=== PATIENT | male | born 1995 | race Hispanic/Latino ===

== ENCOUNTER 2021-08-30 18:19 | Emergency (ER) | payer SELFPAY ==
--- OUTSIDE RECORDS SUMMARY | 2021-08-30 18:22 | XMS REPORT | Continuity of Care Document ---
:1995 Author Organization [facility] t Address [address] [place] [address] Care Team Providers Name Role Phone Jaxon MELISSA Attending Clinician JAXON Attending Clinician Unavailable Payers Payer Name Policy Type Policy Number Effective Date Expiration Date S ource Problems Condition Condition Condition Status Onset Resolution Last Treating Co mments Source Name Details Category Date Date Treatment Clinician Date Closed Closed Disease Active 2011-09 Univers fracture fracture 2 ity of of shaft of shaft 00:00: [place] of radius of radius 00 Medi alana with ulna with ulna Bran ch Allergies, Adverse Reactions, Alerts Allergy Allergy Status Severity Reaction(s) Onset Inactive Treating Comm ents Source Name Type Date Date Clinician No Known DA Active U [facility] Allergie 05-14 Clear s 00:00: Gonzalez 00 [facility] NO KNOWN Drug Active Univers ALLERGIE Class ity of [facility] [place] [facility] Social History Social Habit Start Date Stop Date Quantity Comments Source Sex Assigned At [facility] Medical Branch Exposure to Not sure [facility] SARS-CoV-2 (event) Medica l Branch Tobacco use and 2016-02-27 2016-02-27 Never used [facility] exposure 00:00:00 00:00:00 Medical Branch Alcohol intake 2016-02-27 2016-02-27 [facility] 00:00:00 00:00:00 [facility] Smoking Status Start Date Stop Date Source Never smoker [facility] Medications Ordered Filled Start Stop Current Ordering Indication Dosage Frequency Signature Comments Components Source Medication Medication Date Date Medication? Clinician (SIG) Name Name ketorolac 2019-09 2020- No 60mg 60 mg, Unive rs (TORADOL) 0-18 10-18 Intramuscu ity of injection 09:30: 08:41 [place], ONCE[place] 60 mg 00 :00 1 dose, Medical [place] 06/24/20 at 0430, CAYLA
Fa [facility] approving Restricted medication : ROYER COATES dicyclomine 2019-09- No 20mg 20 mg, Uni vers (BENTYL) 0-18 10-18 Intramuscu ity of injection 09:30: 08:40 [place] 20 mg 00 :00 NOW, 1 Medical dose, [place] 06/24/20 at 0430, Routine dicyclomine 2019-09 Yes [id number] 10mg Take 1 Univers (BENTYL) 10 0-18 capsule by it [place] of mg capsule 00:00[place] (four[place] Medical times Branch daily as needed for Abdominal pain (Abdominal cramps). famotidine 2019-09 Yes [id number] 20mg Take 1 U nivers (PEPCID) 20 0-18 tablet by ity of mg tablet 00:00: mouth 2 [place] 00 (two) Medical times Branch daily. ketorolac 2019-09 Yes [id number] 10mg Take 1 Un david 10 mg 0-18 tablet by ity of tablet 00:00: mouth [place] 00 every 6 Medical (six) Branch hours as needed for Pain (scale 4-6) or Pain (scale 7-10). PSEUDOEPHED Yes Take by Un david /DIPHENHYDR 1-09 mouth. ity of AMINE 15:20: [place] (ALLERGY & 13 Medical CONGEST Branch RELIEF ORAL) HYDROcodone Yes 1{tbl} Take 1-2 Univers -acetaminop 1-09 Tabs by ity o f hen (NORCO) 00:00: mouth [place] 5-325 mg 00 every 6 Medical tablet (six) Branch hours as needed for Pain. Vital Signs Vital Name Observation Time Observation Value Comments Source Systolic blood 2020-06-24 09:42:41 123 mm[Hg] Univer sity of pressure [facility] Diastolic blood 2020-06-24 09:42:41 63 mm[Hg] Unive rsity of pressure [facility] Heart rate 2020-06-24 09:42:41 72 /min [facility] Respiratory rate 2020-06-24 09:42:41 18 /min [facility] Oxygen saturation in 2020-06-24 09:42:41 99 /min [facility] Arterial blood by [facility] Pulse oximetry [place] Body temperature 2020-06-24 08:07:00 36.83 Gracie [facility] Body height 2020-06-24 08:07:00 175.3 cm [facility] Body weight 2020-06-24 08:07:00 85.73 kg [facility] BMI 2020-06-24 08:07:00 27.91 kg/m2 [facility] Procedures Procedure Date / Time Performed Performing Clinician [facility] e US GALL BLADDER 2020-06-24 09:24:03 Royer Coates [facility] LIPASE 2020-06-24 08:41:00 Royer Coates [facility] COMP. METABOLIC PANEL 2020-06-24 08:41:00 Royer Coates [facility] ([id number]) [facility] CBC WITH DIFF 2020-06-24 08:41:00 Royer Coates [facility] Encounters Start End Encounter Admission Attending Care Care Encounter Source Date/Time Date/Time Type Type Clinicians Facility Department ID 2020-06-24 2020-06-24 Emergency Jaxon [facility] [id number] Univers 03:06:00 04:44:00 Royer [employer] [id number] it y of [place] [id number] [facility] [id number] [address] ([facility]) 2020-06-24 2020-06-24 Emergency X JAXON OHDARYL ERT [id number] Univers 03:06:00 03:06:00 ROYER agee [facility] 2018-09-07 2018-09-07 Emergency [facility] [id number] [place] 04:56:03 04:56:03 Health 2018-09-07 2018-09-07 Emergency [facility] [id number] [place] 03:05:09 03:05:09 Health Results Test Description Test Time Test Comments Results Result Comments Source COMP. METABOLIC PANEL (34077) 2020-06-24 09:00:00 Test Item Value Reference Range Interpretation Comme nts NA (test code = 2738252163) 139 mmol/L 135-145 K (test code = 9272037363) 4.4 mmol/L 3.5-5 CL (test code = 1188145787) 100 mmol/L 98-108 CO2 TOTAL (test code = 29 mmol/L 23-31 9020706977) AGAP (test code = 6625610544) 2-16 BUN (test code = 7754192169) 12 mg/dL 7-23 GLUCOSE (test code = 9610189294) 90 mg/dL 70-110 CREATININE (test code = 0.87 mg/dL 0.6-1.25 3668363990) TOTAL BILI (test code = 0.4 mg/dL 0.1-1.9 8156905877) CALCIUM (test code = 3204302003) 10.0 mg/dL 8.6-10.6 T PROTEIN (test code = 7.6 g/dL 6.3-8.2 3489689569) ALBUMIN (test code = 0496284612) 4.7 g/dL 3.5-5 ALK PHOS (test code = 2854766212) 62 U/L 34-122 ALTv (test code = 1742-6) 18 U/L 5-50 AST(SGOT) (test code = 29 U/L 13-40 2468653175) eGFR Calculation (Non- mL/min/1.73m2 Albanian) (test code = 2132846888) eGFR Calculation ( mL/min/1.73m2 Albanian) (test code = 1545360475) NOAH (test code = NOAH) Association of Glomerular Filtration Rate (GFR) and Staging of Kidney Disease* + +--------- + ----+| GFR (mL/min/1.73 m2) ?| With Kidney Damage ?| ?Without Kidney Damage+ +--- + +| ?>90 ?| ?Stage one ?| ? Normal ?+ +-------- + -----+| ?60-89 ?| ?Stage two ?| ? Decreased GFR ? + +--------- + ----+| ?30-59 ?| ?Stage three ?| ? Stage three ? + +--------- + ----+| ?15-29 ?| ?Stage four ? | ? Stage four ?+ +-------- + -----+| ?<15 (or dialysis) ? ?| ?Stage five ? | ? Stage five ?+ +-------- + -----+ *Each stage assumes the associated GFR level has been in effect for at least three months. ?Stages 1 to 5, with or without kidney disease, indicate chronic kidney disease. Notes: Determination of stages one and two (with eGFR >59mL/min/1.73 m2) requires estimation of kidney damage for at least three months as defined by structural or functional abnormalities of the kidney, manifested by either:Pathological abnormalities or Markers of kidney damage (including abnormalities in the composition of the blood or urine or abnormalities in imaging tests). [facility]00 Test Item Value Reference Range Interpretation Comments LIPASE (test code = 2924181909) 69 U/L 0-220 Lab Interpretation (test code = Normal 73478-0) [facility] WITH [id number] 08:48:00 Test Item Value Reference Range Interpretation Comments WBC (test code = See_Comment [Automated 2966-2) message] The sy stem which generated this result transmitted reference range : 4.20 - 10.70 10*3/?L. The reference range was not used to interpret this result as normal/abnormal . RBC (test code = See_Comment [Automated 442-8) message] The sy stem which generated this result transmitted reference range : 4.26 - 5.52 10*6/?L. The reference range was not used to interpret this result as normal/abnormal . HGB (test code = 14.4 g/dL 12.2-16.4 718-7) HCT (test code = 41.8 % 38.4-49.3 4544-3) MCV (test code = 91.1 fL 81.7-95.6 787-2) MCH (test code = 31.4 pg 26.1-32.7 785-6) MCHC (test code = 34.4 g/dL 31.2-35 786-4) RDW-SD (test code = 39.1 fL 38.5-51.6 04340-3) RDW-CV (test code = 11.7 % 12.1-15.4 L 788-0) PLT (test code = See_Comment [Automated 777-3) message] The sy stem which generated this result transmitted reference range : 150 - 328 10*3/ ?L. The reference r citlali was not used to interpret this result as normal/abnormal . MPV (test code = 9.9 fL 9.8-13 86721-0) NRBC/100 WBC (test See_Comment [Automat ed code = 0093402438) message] The system which generated this result transmitted reference range : 0.0 - 10.0 /100 WBCs. The refer ence range was not u sed to interpret th is result as normal/abnormal . NRBC x10^3 (test code <0.01 See_Comment [Auto mated = 8511306593) message] The s ystem which generated this result transmitted reference range : 10*3/?L. The reference range was not used to interpret this result as normal/abnormal . GRAN MAT (NEUT) % 44.7 % (test code = 770-8) IMM GRAN % (test code 0.50 % = 7906328001) LYMPH % (test code = 38.6 % 736-9) MONO % (test code = 7.5 % 5905-5) EOS % (test code = 8.0 % 713-8) BASO % (test code = 0.7 % 706-2) GRAN MAT x10^3(ANC) 3.90 10*3/uL 1.99-6.95 (test code = 3335794598) IMM GRAN x10^3 (test 0.04 10*3/uL 0-0.06 code = 4142509639) LYMPH x10^3 (test code 3.37 10*3/uL 1.09-3.23 H = 731-0) MONO x10^3 (test code 0.65 10*3/uL 0.36-1.02 = 742-7) EOS x10^3 (test code = 0.70 10*3/uL 0.06-0.53 H 711-2) BASO x10^3 (test code 0.06 10*3/uL 0.01-0.09 = 704-7) Lab Interpretation Abnormal (test code = 22846-3) [facility]"
--- NOTE | 2021-08-30 19:35 | ER ---
Nurse's Notes [facility] Name: Bassem Almonte Age: 26 yrs Sex: Male : 1995 Arrival Date: 08/30/2021 Time: 18:21 Bed Waiting Private MD: Diagnosis: ED Course: 08/30 18:21 Patient arrived in ED. mr Administered Medications: No medications were administered Outcome: 19:35 Patient left the ED. tw5 Signatures: Rayna Fletcher Bekah Sosa tw5
== END 2021-08-30 19:35 | disposition left against medical advice (07) ==
LOC: ER 18:19
DX: Z02.9 Encounter for administrative examinations, unspecified (principal)

== ENCOUNTER 2022-06-09 02:50 | Emergency (ER) | payer SELFPAY ==
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
[2022-06-09] MEDS ORDERED: ONDANSETRON 4 MG/2 ML VIAL ONE (03:10)
[2022-06-09] MEDS ORDERED: NA CHLORIDE 0.9% 1,000 ML ONE (03:27)
--- NOTE | 2022-06-09 04:15 | ER ---
Nurse's Notes [facility] Name: Bassem Almonte Age: 27 yrs Sex: Male : 1995 Arrival Date: 06/09/2022 Time: 02:53 Bed 16 Private MD: Diagnosis: Presentation: 06/09 03:11 Chief complaint: Patient states: "I started having pain in my abdomen in the morning. as6 It's making it hard to eat. I have also been a little nauseous.". Coronavirus screen: Vaccine status: Patient reports being unvaccinated. nausea, abdominal pain. Ebola Screen: No symptoms or risks identified at this time. Initial Sepsis Screen: Does the patient meet any 2 criteria? HR > 90 bpm. No. Patient's initial sepsis screen is negative. Does the patient have a suspected source of infection? Yes: Acute abdominal pain. Risk Assessment: Do you want to hurt yourself or someone else? Patient reports no desire to harm self or others. Onset of symptoms was June 08, 2022. 03:11 Method Of Arrival: Ambulatory as6 03:11 Acuity: SHAQUILLE 3 as6 Triage Assessment: 03:14 General: Appears in no apparent distress. uncomfortable, Behavior is calm, cooperative, vc1 appropriate for age. Pain: Complains of pain in right upper quadrant Pain does not radiate. Pain currently is 6 out of 10 on a pain scale. Aggravated by eating. EENT: No deficits noted. Neuro: Level of Consciousness is awake, alert, obeys commands, Oriented to person, place, time, situation, Appropriate for age. Cardiovascular: Capillary refill < 3 seconds Patient's skin is warm and dry. Respiratory: Airway is patent Respiratory effort is even, unlabored, Respiratory pattern is regular, symmetrical. GI: Abd is soft Abdomen is tender to palpation Guarding noted Reports upper abdominal pain, nausea. : No deficits noted. Derm: No deficits noted. No signs and/or symptoms reported regarding the dermatologic system. Musculoskeletal: No deficits noted. No signs and/or symptoms reported regarding the musculoskeletal system. Historical: - Allergies: 03:14 No Known Allergies; vc1 - Home Meds: 03:14 None [Active]; vc1 - PMHx: 03:14 None; vc1 - PSHx: 03:14 None; vc1 - Immunization history:: Adult Immunizations up to date, Client reports having NOT received the Covid vaccine. - Social history:: Smoking status: Patient reports the use of cigarette tobacco products, smokes one pack cigarettes per day. Screenin:14 Abuse screen: Denies threats or abuse. Nutritional screening: No deficits noted. vc1 Tuberculosis screening: No symptoms or risk factors identified. Fall Risk None identified. Assessment: 03:18 Pain: Complains of pain in abdomen and right upper quadrant Pain currently is 6 out of ke1 10 on a pain scale. at worst was 6 out of 10 on a pain scale. level that patient reports is acceptable is 4 out of 10 on a pain scale. Quality of pain is described as shooting. Neuro: Level of Consciousness is awake, alert, Oriented to person, place, time, situation. GI: Bowel sounds present X 4 quads. Abd is soft Abdomen is tender to palpation in right upper quadrant and right lower quadrant. 04:04 Reassessment: Patient wants lo leave because he has to be at work at 0430, refusing CT ke1 scan because feeling better, provider notified , and patient still refusing despite provider explaining the risks of appendicitis to the patient, patient wants to leave. Vital Signs: 03:11 BP 142 / 86; Pulse 96; Resp 20; Temp 98.2(O); Pulse Ox 100% on R/A; Weight 92.99 kg as6 (R); Height 5 ft. 9 in. (175.26 cm) (R); Pain 6/10; 03:16 Pain 6/10; vc1 04:07 BP 141 / 91; Pulse 107; Resp 19; Temp 98.7(O); Pulse Ox 98% ; ke1 03:11 Body Mass Index 30.27 (92.99 kg, 175.26 cm) as6 ED Course: 02:53 Patient arrived in ED. bp1 02:55 Charlie Cameron MD is Attending Physician. kdr 03:01 Luis Fernando Chapin RN is Primary Nurse. ke1 03:05 Inserted saline lock: 20 gauge in left antecubital area, using aseptic technique. Blood vc1 collected. 03:13 Triage completed. as6 03:16 Arm band placed on right wrist. vc1 03:16 Patient has correct armband on for positive identification. Bed in low position. Call vc1 light in reach. Pulse ox on. NIBP on. 03:17 CBC with Diff Sent. vc1 03:17 CMP Sent. vc1 03:17 Lipase Sent. vc1 Administered Medications: 03:19 Drug: Zofran (Ondansetron) 4 mg Route: IVP; Site: left antecubital; ke1 03:40 Follow up: Response: Marked relief of symptoms; Nausea is decreased ke1 03:29 Drug: NS 0.9% 1000 ml Route: IV; Rate: 1 bolus; Site: left antecubital; ke1 Medication: 03:16 VIS not applicable for this client. vc1 Outcome: 04:14 Patient left the ED. ke1 Signatures: Charlie Cameron MD MD kdr [place], Brittany bp1 Slawson, Ashby, RN RN as6 Peg Corona RN RN vc1 Luis Fernando Chapin RN RN ke1
--- NOTE | 2022-06-09 04:15 | EDPHYS ---
Physician Documentation [facility] Name: Bassem Almonte Age: 27 yrs Sex: Male : 1995 Arrival Date: 06/09/2022 Time: 02:53 Bed 16 Private MD: ED Physician Charlie Cameron HPI: 06/09 03:25 This 27 yrs old Male presents to ER via Ambulatory with complaints of kdr Abdominal Pain, Nausea. 03:25 The patient presents to the emergency department with nausea, that is mild, that is kdr moderate. Onset: The symptoms/episode began/occurred acutely. 03:26 Patient complains of right lower quadrant right upper quadrant pain since yesterday kdr morning. Pain is minor but persistent. Patient denies nausea or vomiting or fever. Patient also denies change in bowel habits or pain with urination.. Onset: The symptoms/episode began/occurred this morning. Severity of symptoms: At their worst the symptoms were mild in the emergency department the symptoms are unchanged. The patient has not experienced similar symptoms in the past. Historical: - Allergies: 03:14 No Known Allergies; vc1 - Home Meds: 03:14 None [Active]; vc1 - PMHx: 03:14 None; vc1 - PSHx: 03:14 None; vc1 - Immunization history:: Adult Immunizations up to date, Client reports having NOT received the Covid vaccine. - Social history:: Smoking status: Patient reports the use of cigarette tobacco products, smokes one pack cigarettes per day. ROS: 03:26 Constitutional: Negative for fever, chills, and weight loss, Eyes: Negative for injury, kdr pain, redness, and discharge, ENT: Negative for injury, pain, and discharge, Neck: Negative for injury, pain, and swelling, Cardiovascular: Negative for chest pain, palpitations, and edema, Respiratory: Negative for shortness of breath, cough, wheezing, and pleuritic chest pain, Back: Negative for injury and pain, : Negative for injury, bleeding, discharge, and swelling, MS/Extremity: Negative for injury and deformity, Skin: Negative for injury, rash, and discoloration, Neuro: Negative for headache, weakness, numbness, tingling, and seizure activity. Psych: Negative for depression, anxiety, suicide ideation, homicidal ideation, and hallucinations, Allergy/Immunology: Negative for hives, rash, and allergies, Endocrine: Negative for neck swelling, polydipsia, polyuria, polyphagia, and marked weight changes, Hematologic/Lymphatic: Negative for swollen nodes, abnormal bleeding, and unusual bruising. 03:26 Abdomen/GI: Positive for abdominal pain, Negative for nausea and vomiting, diarrhea, constipation, abdominal cramps, abdominal distension, anorexia, dysphagia, hematemesis, black/tarry stool, rectal pain, rectal bleeding, bowel incontinence. Exam: 03:26 Constitutional: This is a well developed, well nourished patient who is awake, alert, kdr and in no acute distress. Head/Face: Normocephalic, atraumatic. Eyes: Pupils equal round and reactive to light, extra-ocular motions intact. Lids and lashes normal. Conjunctiva and sclera are non-icteric and not injected. Cornea within normal limits. Periorbital areas with no swelling, redness, or edema. Neck: Trachea midline, no thyromegaly or masses palpated, and no cervical lymphadenopathy. Supple, full range of motion without nuchal rigidity, or vertebral point tenderness. No Meningismus. Chest/axilla: Normal chest wall appearance and motion. Nontender with no deformity. No lesions are appreciated. Cardiovascular: Regular rate and rhythm with a normal S1 and S2. No gallops, murmurs, or rubs. Normal PMI, no JVD. No pulse deficits. Respiratory: Lungs have equal breath sounds bilaterally, clear to auscultation and percussion. No rales, rhonchi or wheezes noted. No increased work of breathing, no retractions or nasal flaring. Back: No spinal tenderness. No costovertebral tenderness. Full range of motion. Skin: Warm, dry with normal turgor. Normal color with no rashes, no lesions, and no evidence of cellulitis. MS/ Extremity: Pulses equal, no cyanosis. Neurovascular intact. Full, normal range of motion. Neuro: Awake and alert, GCS 15, oriented to person, place, time, and situation. Cranial nerves II-XII grossly intact. Motor strength 5/5 in all extremities. Sensory grossly intact. Cerebellar exam normal. Normal gait. Psych: Awake, alert, with orientation to person, place and time. Behavior, mood, and affect are within normal limits. 03:26 Abdomen/GI: Inspection: abdomen appears normal, Bowel sounds: active, all quadrants, Palpation: soft, mild abdominal tenderness, in the right upper quadrant and right lower quadrant. Vital Signs: 03:11 BP 142 / 86; Pulse 96; Resp 20; Temp 98.2(O); Pulse Ox 100% on R/A; Weight 92.99 kg as6 (R); Height 5 ft. 9 in. (175.26 cm) (R); Pain 6/10; 03:16 Pain 6/10; vc1 04:07 BP 141 / 91; Pulse 107; Resp 19; Temp 98.7(O); Pulse Ox 98% ; ke1 03:11 Body Mass Index 30.27 (92.99 kg, 175.26 cm) as6 MDM: 03:26 Data reviewed: vital signs, nurses notes, lab test result(s), radiologic studies. kdr Counseling: I had a detailed discussion with the patient and/or guardian regarding: the historical points, exam findings, and any diagnostic results supporting the discharge/admit diagnosis, lab results, radiology results, the need for outpatient follow up. 06/09 02:56 Order name: CBC with Diff kdr 06/09 02:56 Order name: CMP kdr 06/09 02:56 Order name: Lipase kdr 06/09 03:24 Order name: CT Abd/Pelvis - IV Contrast Only kdr 06/09 02:56 Order name: IV Saline Lock; Complete Time: 03:17 kdr 06/09 02:56 Order name: Labs collected and sent; Complete Time: 03:17 kdr Administered Medications: 03:19 Drug: Zofran (Ondansetron) 4 mg Route: IVP; Site: left antecubital; ke1 03:40 Follow up: Response: Marked relief of symptoms; Nausea is decreased ke1 03:29 Drug: NS 0.9% 1000 ml Route: IV; Rate: 1 bolus; Site: left antecubital; ke1 Disposition Summary: 06/09/22 04:14 Left Against Medical Advice Location: Home ke1 Condition: Stable ke1 Signatures: Dispatcher [employer] EDMS Charlie Cameron MD MD kdr Peg Corona RN RN vc1 Luis Fernando Chapin RN RN ke1
[2022-06-09 04:41] VITALS: BP 141/91; TEMP 98.7; O2SAT 98
[2022-06-09 05:28] LABS: Absolute Lymphocytes (CBC) 1.3 K/uL (0.7-4.9); Hematocrit 44.6 % (39.6-49.0); Lymphocytes % 13.6 % (15.3-44.8); MPV 8.1 fL (7.6-11.3)
[2022-06-09 05:57] LABS: Potassium 3.1 mmol/L (3.5-5.1)
[2022-06-09 05:58] LABS: Albumin 4.4 g/dL (3.4-5.0); Bilirubin Total 0.4 mg/dL (0.2-1.0); Protein, Total 8.7 g/dL (6.4-8.2)
== END 2022-06-09 04:14 | disposition left against medical advice (07) ==
LOC: ER 02:50
DX: R10.9 Unspecified abdominal pain (principal); F17.210 Nicotine dependence, cigarettes, uncomplicated; Z53.29 Procedure and treatment not carried out because of patient's decision for other reasons
CPT/HCPCS: 36415; 80053; 83690; 85025; 96374; 99284; J2405; J7030

== ENCOUNTER 2022-08-12 08:51 | Emergency (ER) | payer SELFPAY ==
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
[2022-08-12 10:29] LABS: SARS-COV-2 RT PCR NEGATIVE (NEGATIVE)
--- NOTE | 2022-08-12 10:31 | ER ---
Nurse's Notes [facility] Name: Bassem Almonte Age: 27 yrs Sex: Male : 1995 Arrival Date: 08/12/2022 Time: 08:53 Bed 12 [facility] MD: Diagnosis: Influenza due to identified novel influenza A virus Presentation: 08/12 09:05 Chief complaint: Patient states: flu like symptoms, cough and congestion x 3 days. At db home temp 102. Coronavirus screen: Vaccine status: Patient reports being unvaccinated. Client denies travel out of the [place] in the last 14 days. At this time, the client does not indicate any symptoms associated with coronavirus-19. Coronavirus screen:. Ebola Screen: Patient negative for fever greater than or equal to 101.5 degrees Fahrenheit, and additional compatible Ebola Virus Disease symptoms Patient denies exposure to infectious person. Patient denies travel to an Ebola-affected area in the 21 days before illness onset. No symptoms or risks identified at this time. Initial Sepsis Screen: Does the patient meet any 2 criteria? No. Patient's initial sepsis screen is negative. Does the patient have a suspected source of infection? No. Patient's initial sepsis screen is negative. Risk Assessment: Do you want to hurt yourself or someone else? Patient reports no desire to harm self or others. Onset of symptoms was August 09, 2022. 09:05 Method Of Arrival: Ambulatory db 09:05 Acuity: SHAQUILLE 4 db Triage Assessment: 09:08 General: Appears in no apparent distress. comfortable, Behavior is calm, cooperative, db quiet. Pain: Complains of pain in throat. Historical: - Allergies: 09:08 No Known Allergies; db - Immunization history:: Adult Immunizations unknown, Client reports having NOT received the Covid vaccine. - Social history:: Smoking status: Patient denies any tobacco usage or history of. Screenin:15 Abuse screen: Denies threats or abuse. Denies injuries from another. Nutritional db screening: No deficits noted. Tuberculosis screening: No symptoms or risk factors identified. Fall Risk None identified. No fall in past 12 months (0 pts). No secondary diagnosis (0 pts). No IV (0 pts). Ambulatory Aid- None/Bed Rest/Nurse Assist (0 pts). Gait- Normal/Bed Rest/Wheelchair (0 pts) Mental Status- Oriented to own ability (0 pts). Total Roche Fall Scale indicates No Risk (0-24 pts). Assessment: 09:15 Reassessment: Patient appears in no apparent distress at this time. Patient is alert, db oriented x 3, equal unlabored respirations, skin warm/dry/pink. Cough congestion and fever. General: Appears in no apparent distress. comfortable, Behavior is calm, cooperative, appropriate for age, quiet. Pain: Complains of pain in throat. Neuro: No deficits noted. Level of Consciousness is awake, alert, obeys commands, Oriented to person, place, time, situation, Appropriate for age Speech is normal. Cardiovascular: No deficits noted. Respiratory: Reports cough that is Airway is patent Respiratory effort is even, unlabored, Respiratory pattern is regular, symmetrical, Breath sounds are clear bilaterally. GI: No deficits noted. No signs and/or symptoms were reported involving the gastrointestinal system. : No deficits noted. No signs and/or symptoms were reported regarding the genitourinary system. EENT: Oral mucosa is moist. Reports sore throat. 10:41 Reassessment: Patient appears in no apparent distress at this time. No changes from db previously documented assessment. Patient and/or family updated on plan of care and expected duration. Pain level reassessed. Patient is alert, oriented x 3, equal unlabored respirations, skin warm/dry/pink. Vital Signs: 09:05 BP 111 / 64; Pulse 71; Resp 18 S; Temp 98.5(O); Pulse Ox 100% on R/A; Weight 83.91 kg; db Height 5 ft. 10 in. (177.80 cm); Pain 5/10; 10:41 BP 111 / 64; Pulse 72; Resp 16; Temp 97.7(O); Pulse Ox 100% ; db 09:05 Body Mass Index 26.54 (83.91 kg, 177.80 cm) db ED Course: 08:53 Patient arrived in ED. as 09:00 Charlie Cameron MD is Attending Physician. kdr 09:01 [facility] 09:08 Triage completed. db 09:08 Arm band placed on left wrist. db 09:09 Jasmine Schafer, CARLOS MANUEL is Primary Nurse. db 09:15 Patient has correct armband on for positive identification. Bed in low position. Side db rails up X 1. 10:05 [facility] sn[facility] 10:42 No provider procedures requiring assistance completed. Patient did not have IV access db during this emergency room visit. Administered Medications: No medications were administered Medication: 09:15 VIS not applicable for this client. db Outcome: 10:30 Discharge ordered by . snw 10:42 Discharged to home ambulatory. db 10:42 Condition: stable 10:42 Discharge instructions given to patient, Instructed on discharge instructions, follow up and referral plans. Demonstrated understanding of instructions, Prescriptions given X 3. 10:43 Patient left the ED. db Signatures: Charlie Cameron MD MD kdr Waters, Shelly, FNP-C FNP-Csnw Jaida Green Danielle, RN RN db
--- NOTE | 2022-08-12 10:31 | EDPHYS ---
Physician Documentation [facility] Name: Bassem Almonte Age: 27 yrs Sex: Male : 1995 Arrival Date: 08/12/2022 Time: 08:53 Bed 12 Private MD: ED Physician Charlie Cameron HPI: 08/12 09:12 This 27 yrs old Male presents to ER via Ambulatory with complaints of Flu snw Symptoms. 09:12 The patient or guardian reports cough, flu symptoms, low-grade fever, myalgias, no snw appetite. Onset: The symptoms/episode began/occurred suddenly, 3 day(s) ago, and became persistent. Associated signs and symptoms: Pertinent positives: fever, nausea, rhinorrhea. Severity of symptoms: At their worst the symptoms were moderate. The patient has not experienced similar symptoms in the past. The patient has not recently seen a physician. Historical: - Allergies: 09:08 No Known Allergies; db - Immunization history:: Adult Immunizations unknown, Client reports having NOT received the Covid vaccine. - Social history:: Smoking status: Patient denies any tobacco usage or history of. ROS: 09:12 Eyes: Negative for injury, pain, redness, and discharge. snw 09:12 Neck: Negative for injury, pain, and swelling, Cardiovascular: Negative for chest pain, palpitations, and edema. 09:12 Abdomen/GI: Negative for abdominal pain, nausea, vomiting, diarrhea, and constipation, Back: Negative for injury and pain, : Negative for injury, bleeding, discharge, and swelling, MS/Extremity: Negative for injury and deformity, Skin: Negative for injury, rash, and discoloration, Neuro: Negative for headache, weakness, numbness, tingling, and seizure. 09:12 Constitutional: Positive for body aches, fatigue, fever, malaise. 09:12 ENT: Positive for nasal discharge, sinus congestion, sore throat. 09:12 Respiratory: Positive for cough, with no reported sputum. Exam: 09:14 Constitutional: This is a well developed, well nourished patient who is awake, alert, snw and in no acute distress. Head/Face: Normocephalic, atraumatic. Eyes: Pupils equal round and reactive to light, extra-ocular motions intact. Lids and lashes normal. Conjunctiva and sclera are non-icteric and not injected. Cornea within normal limits. Periorbital areas with no swelling, redness, or edema. ENT: Nares patent. No nasal discharge, no septal abnormalities noted. Tympanic membranes are normal and external auditory canals are clear. Oropharynx with no redness, swelling, or masses, exudates, or evidence of obstruction, uvula midline. Mucous membranes moist. Neck: Trachea midline, no thyromegaly or masses palpated, and no cervical lymphadenopathy. Supple, full range of motion without nuchal rigidity, or vertebral point tenderness. No Meningismus. Chest/axilla: Normal chest wall appearance and motion. Nontender with no deformity. No lesions are appreciated. Cardiovascular: Regular rate and rhythm with a normal S1 and S2. No gallops, murmurs, or rubs. Normal PMI, no JVD. No pulse deficits. Respiratory: Lungs have equal breath sounds bilaterally, clear to auscultation and percussion. No rales, rhonchi or wheezes noted. No increased work of breathing, no retractions or nasal flaring. Abdomen/GI: Soft, non-tender, with normal bowel sounds. No distension or tympany. No guarding or rebound. No evidence of tenderness throughout. Back: No spinal tenderness. No costovertebral tenderness. Full range of motion. Skin: Warm, dry with normal turgor. Normal color with no rashes, no lesions, and no evidence of cellulitis. MS/ Extremity: Pulses equal, no cyanosis. Neurovascular intact. Full, normal range of motion. Neuro: Awake and alert, GCS 15, oriented to person, place, time, and situation. Cranial nerves II-XII grossly intact. Motor strength 5/5 in all extremities. Sensory grossly intact. Cerebellar exam normal. Normal gait. Psych: Awake, alert, with orientation to person, place and time. Behavior, mood, and affect are within normal limits. Vital Signs: 09:05 BP 111 / 64; Pulse 71; Resp 18 S; Temp 98.5(O); Pulse Ox 100% on R/A; Weight 83.91 kg; db Height 5 ft. 10 in. (177.80 cm); Pain 5/10; 10:41 BP 111 / 64; Pulse 72; Resp 16; Temp 97.7(O); Pulse Ox 100% ; db 09:05 Body Mass Index 26.54 (83.91 kg, 177.80 cm) db MDM: 09:03 Patient medically screened. snw 09:14 Data reviewed: vital signs, nurses notes. Data interpreted: Pulse oximetry: on room air snw is 100 %. Interpretation: normal. Counseling: I had a detailed discussion with the patient and/or guardian regarding: the historical points, exam findings, and any diagnostic results supporting the discharge/admit diagnosis. 08/12 09:02 Order name: COVID-19/FLU A+B/RSV; Complete Time: 10:31 snw Administered Medications: No medications were administered Disposition: 10:55 Co-signature as Attending Physician, Charlie Cameron MD I agree with the assessment and kdr plan of care. Disposition Summary: 08/12/22 10:30 Discharge Ordered Location: Home snw Condition: Stable snw Diagnosis - Influenza due to identified novel influenza A virus snw Followup: snw - With: Emergency Department - When: As needed - Reason: Worsening of condition Followup: snw - With: Private Physician - When: 2 - 3 days - Reason: Recheck today's complaints, Continuance of care, Re-evaluation by your physician Discharge Instructions: - Discharge Summary Sheet snw - Fever, Adult snw - Influenza, Adult snw - Rehydration, Adult snw Forms: - Medication Reconciliation Form snw - Thank You Letter snw - Antibiotic Education snw - Prescription Opioid Use snw - Work release form snw Prescriptions: - Zyrtec 10 mg Oral Tablet - take 1 tablet by ORAL route once daily As needed; 20 tablet; Refills: 0, snw Product Selection Permitted - Pepcid 20 mg Oral Tablet - take 1 tablet by ORAL route once daily; 20 tablet; Refills: 0, Product snw Selection Permitted - promethazine 25 mg Oral Tablet - take 1 tablet by ORAL route every 6 hours As needed; 20 tablet; Refills: 0, snw Product Selection Permitted Signatures: Dispatcher [employer] Charlie Green MD MD kdr Waters, Shelly, HEALTHCARE SCIENCE SPECIALIST-C HEALTHCARE SCIENCE SPECIALIST-Csnw Jasmine Schafer, RN RN db
[2022-08-12 12:44] VITALS: BP 111/64; O2SAT 100
[2022-08-12 12:45] VITALS: TEMP 97.7
== END 2022-08-12 10:43 | disposition home or self-care (01) ==
LOC: ER 08:51
DX: J10.1 Influenza due to other identified influenza virus with other respiratory manifestations (principal); Z20.822 Contact with and (suspected) exposure to COVID-19
CPT/HCPCS: 0241U; 99282

== ENCOUNTER 2022-09-15 14:16 | Emergency (ER) | payer SELFPAY ==
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
--- NOTE | 2022-09-15 15:37 | RAD REPORT ---
EXAM DESCRIPTION: US - Extrem Venous W Compress Carmelo - 09/15/2022 3:19 pm CLINICAL HISTORY: Pain Bilateral leg edema and swelling. COMPARISON: No comparisons TECHNIQUE: Real-time sonographic interrogation of the left and right lower extremity deep venous sys tems was performed. FINDINGS: Normal compressibility, flow augmentation, phasic flow and spontaneous flow is identified in both the left and right lower extremity deep venous systems. IMPRESSION: No sonographic evidence of left or right lower extremity deep venous thrombosis.
--- NOTE | 2022-09-15 15:40 | RAD REPORT ---
EXAM DESCRIPTION: RAD - Chest Single View - 09/15/2022 3:21 pm CLINICAL HISTORY: Cough Chest pain. COMPARISON: No comparisons FINDINGS: Portable technique limits examination quality. The lungs are grossly clear. The heart is normal in size. No displaced fractures. IMPRESSION: No acute intrathoracic process suspected.
--- NOTE | 2022-09-15 16:05 | EDPHYS ---
Physician Documentation [facility] Name: Bassem Almonte Age: 27 yrs Sex: Male : 1995 Arrival Date: 09/15/2022 Time: 14:18 Bed 5 Private MD: ED Physician Doug Conn HPI: 09/15 15:57 This 27 yrs old Male presents to ER via Ambulatory with complaints of chen Shortness Of Breath, Leg Swelling. 15:57 The patient has shortness of breath at rest. Onset: The symptoms/episode began/occurred chen 5 day(s) ago. Duration: The symptoms are intermittent, with no pattern. The patient's shortness of breath has no apparent modifying factors. Associated signs and symptoms: Pertinent positives: non-productive cough. Severity of symptoms: At their worst the symptoms were mild in the emergency department the symptoms are unchanged. The patient has experienced similar episodes in the past, a few times. Historical: - Allergies: 14:23 No Known Allergies; iw - Home Meds: 14:23 None [Active]; iw - PMHx: 14:23 None; iw - PSHx: 14:23 right arm; iw - Immunization history:: Adult Immunizations Client reports having NOT received the Covid vaccine. - Social history:: Smoking status: Patient reports the use of cigarette tobacco products. ROS: 15:58 Constitutional: Negative for fever, chills, and weight loss, Eyes: Negative for injury, chen pain, redness, and discharge, ENT: Negative for injury, pain, and discharge, Neck: Negative for injury, pain, and swelling, Cardiovascular: Negative for chest pain, palpitations, and edema, Respiratory: Negative for shortness of breath, cough, wheezing, and pleuritic chest pain, Abdomen/GI: Negative for abdominal pain, nausea, vomiting, diarrhea, and constipation, Back: Negative for injury and pain, : Negative for injury, bleeding, discharge, and swelling, Skin: Negative for injury, rash, and discoloration, Neuro: Negative for headache, weakness, numbness, tingling, and seizure, Psych: Negative for depression, anxiety, suicide ideation, homicidal ideation, and hallucinations, Allergy/Immunology: Negative for hives, rash, and allergies, Endocrine: Negative for neck swelling, polydipsia, polyuria, polyphagia, and marked weight changes, Hematologic/Lymphatic: Negative for swollen nodes, abnormal bleeding, and unusual bruising. 15:58 MS/extremity: Positive for pain, of the left leg. Exam: 15:58 Constitutional: This is a well developed, well nourished patient who is awake, alert, chen and in no acute distress. Head/Face: Normocephalic, atraumatic. Eyes: Pupils equal round and reactive to light, extra-ocular motions intact. Lids and lashes normal. Conjunctiva and sclera are non-icteric and not injected. Cornea within normal limits. Periorbital areas with no swelling, redness, or edema. ENT: Nares patent. No nasal discharge, no septal abnormalities noted. Tympanic membranes are normal and external auditory canals are clear. Oropharynx with no redness, swelling, or masses, exudates, or evidence of obstruction, uvula midline. Mucous membranes moist. Neck: Trachea midline, no thyromegaly or masses palpated, and no cervical lymphadenopathy. Supple, full range of motion without nuchal rigidity, or vertebral point tenderness. No Meningismus. Chest/axilla: Normal chest wall appearance and motion. Nontender with no deformity. No lesions are appreciated. Cardiovascular: Regular rate and rhythm with a normal S1 and S2. No gallops, murmurs, or rubs. Normal PMI, no JVD. No pulse deficits. Respiratory: Lungs have equal breath sounds bilaterally, clear to auscultation and percussion. No rales, rhonchi or wheezes noted. No increased work of breathing, no retractions or nasal flaring. Abdomen/GI: Soft, non-tender, with normal bowel sounds. No distension or tympany. No guarding or rebound. No evidence of tenderness throughout. Back: No spinal tenderness. No costovertebral tenderness. Full range of motion. Male : Normal genitalia with no discharge or lesions. Skin: Warm, dry with normal turgor. Normal color with no rashes, no lesions, and no evidence of cellulitis. MS/ Extremity: Pulses equal, no cyanosis. Neurovascular intact. Full, normal range of motion. Neuro: Awake and alert, GCS 15, oriented to person, place, time, and situation. Cranial nerves II-XII grossly intact. Motor strength 5/5 in all extremities. Sensory grossly intact. Cerebellar exam normal. Normal gait. Psych: Awake, alert, with orientation to person, place and time. Behavior, mood, and affect are within normal limits. 15:58 Musculoskeletal/extremity: DVT Exam: No signs of deep vein thrombosis. no pain, no swelling, no tenderness, negative Homans' sign noted on exam, no appreciated bluish discoloration, no erythema, no increased warmth. Vital Signs: 14:24 BP 125 / 72; Pulse 86; Resp 18; Temp 98.7; Pulse Ox 97% on R/A; Weight 84.82 kg; Height iw 5 ft. 9 in. (175.26 cm); 16:08 BP 126 / 74; Pulse 73; Resp 16; Pulse Ox 100% on R/A; db 14:24 Body Mass Index 27.61 (84.82 kg, 175.26 cm) iw MDM: 14:52 Patient medically screened. chen 15:59 Differential diagnosis: closed fracture, contusion, abrasion, Anemia Anxiety Reaction chen asthma, Bronchitis CHF exacerbation, Chronic Obstructive Pulmonary Disease Pneumothorax Psychogenic pulmonary edema, Pulmonary Embolism Sepsis. Antibiotic administration: Not indicated. Immunization status:. Data reviewed: vital signs, nurses notes, radiologic studies, ultrasound. Consideration of Admission/Observation Patient was admitted/placed on observation. I considered the following discharge prescriptions or medication management in the emergency department Medications were administered in the Emergency Department. See MAR. 16:02 ED course: PT WANTS NO LABS DONE, WANTS TO GO HOME. [facility] 09/15 14:53 Order name: XRAY Chest (1 view); Complete Time: 15:47 [facility] 09/15 14:53 Order name: EKG; Complete Time: 14:54 [facility] 09/15 14:53 Order name: Cardiac monitoring; Complete Time: 14:59 [facility] 09/15 14:53 Order name: US Extremity Venous W Compression Carmelo; Complete Time: 15:47 [facility] 09/15 14:53 Order name: EKG - Nurse/Tech; Complete Time: 14:54 [facility] 09/15 14:53 Order name: IV Saline Lock; Complete Time: 15:00 [facility] 09/15 14:53 Order name: Labs collected and sent; Complete Time: 15:00 [facility] 09/15 14:53 Order name: O2 Per Protocol; Complete Time: 14:59 [facility] 09/15 14:53 Order name: O2 Sat Monitoring; Complete Time: 14:59 chen Administered Medications: 15:38 Not Given (Patient Refused): NS 0.9% 1000 ml IV at 125 ml/hr continuous db Disposition Summary: 09/15/22 16:04 Discharge Ordered Location: Home chen Problem: new chen Symptoms: have improved chen Condition: Stable chen Diagnosis - Pain in left lower leg chen - Dyspnea chen Followup: chen - With: Private Physician - When: 2 - 3 days - Reason: Recheck today's complaints, Continuance of care, Re-evaluation by your physician Discharge Instructions: - Discharge Summary Sheet chen - Musculoskeletal Pain chen - Shortness of Breath, Adult chen Forms: - Medication Reconciliation Form chen - Thank You Letter chen - Antibiotic Education chen - Prescription Opioid Use chen Signatures: Dispatcher [employer] EDDoug Torres MD MD cha Williams, Irene, RN RN Jasmine Davenport RN db
--- NOTE | 2022-09-15 16:05 | ER ---
Nurse's Notes [facility] Name: Bassem Almonte Age: 27 yrs Sex: Male : 1995 Arrival Date: 09/15/2022 Time: 14:18 Bed 5 Private MD: Diagnosis: Pain in left lower leg;Dyspnea Presentation: 09/15 14:21 Chief complaint: Patient states: my left leg gets swollen and it's hard to walk on and iw I have pain in my right side of chest , started last week , the swelling will start in my knee cap and it cuts the circulation off, it has happened three times. Coronavirus screen: At this time, the client does not indicate any symptoms associated with coronavirus-19. Ebola Screen: Patient negative for fever greater than or equal to 101.5 degrees Fahrenheit, and additional compatible Ebola Virus Disease symptoms Patient denies exposure to infectious person. Patient denies travel to an Ebola-affected area in the 21 days before illness onset. No symptoms or risks identified at this time. Initial Sepsis Screen: Does the patient meet any 2 criteria? No. Patient's initial sepsis screen is negative. Does the patient have a suspected source of infection? No. Patient's initial sepsis screen is negative. Risk Assessment: Do you want to hurt yourself or someone else? Patient reports no desire to harm self or others. Onset of symptoms was September 08, 2022. 14:21 Method Of Arrival: Ambulatory iw 14:21 Acuity: SHAQUILLE 3 iw Triage Assessment: 16:22 General: Appears in no apparent distress. comfortable. General: Appears Behavior is db calm, cooperative, quiet. Neuro: Level of Consciousness is awake, alert, obeys commands, Oriented to person, place, time, situation, Speech is normal. Respiratory: Onset: The symptoms/episode began/occurred. Respiratory: Reports AT TIMES SHORTNESS OF BREATH Airway is patent Respiratory effort is even, unlabored, Respiratory pattern is regular, symmetrical, the patient reports symptoms have resolved. Historical: - Allergies: 14:23 No Known Allergies; iw - Home Meds: 14:23 None [Active]; iw - PMHx: 14:23 None; iw - PSHx: 14:23 right arm; iw - Immunization history:: Adult Immunizations Client reports having NOT received the Covid vaccine. - Social history:: Smoking status: Patient reports the use of cigarette tobacco products. Screenin:28 [facility] ED Fall Risk Assessment (Adult) History of falling in the last 3 months, db including since admission No falls in past 3 months (0 pts) Confusion or Disorientation No (0 pts) Intoxicated or Sedated No (0 pts) Impaired Gait No (0 pts) Mobility Assist Device Used No (0 pt) Altered Elimination No (0 pt) Score/Fall Risk Level 0 - 2 = Low Risk. Abuse screen: Denies threats or abuse. Denies injuries from another. Nutritional screening: No deficits noted. Tuberculosis screening: No symptoms or risk factors identified. Assessment: 14:56 Reassessment: Patient appears in no apparent distress at this time. Patient and/or db family updated on plan of care and expected duration. Pain level reassessed. Patient is alert, oriented x 3, equal unlabored respirations, skin warm/dry/pink. complains of left knee swelling and pain. General: Appears in no apparent distress. comfortable, Behavior is calm, cooperative, appropriate for age. Pain: Complains of pain in left leg. Neuro: Level of Consciousness is awake, alert, obeys commands, Oriented to person, place, time, situation. Cardiovascular: Rhythm is regular. Respiratory: Airway is patent Respiratory effort is even, unlabored, Breath sounds are clear. 15:27 Reassessment: PATIENT REFUSED LABS. STATES JUST WANTS RADIOLOGY REPORT OF ULTRASOUND db AND XRAY. NOTIFIED DR. VILA. Vital Signs: 14:24 BP 125 / 72; Pulse 86; Resp 18; Temp 98.7; Pulse Ox 97% on R/A; Weight 84.82 kg; Height iw 5 ft. 9 in. (175.26 cm); 16:08 BP 126 / 74; Pulse 73; Resp 16; Pulse Ox 100% on R/A; db 14:24 Body Mass Index 27.61 (84.82 kg, 175.26 cm) iw ED Course: 14:18 Patient arrived in ED. rg4 14:23 Triage completed. iw 14:24 Arm band placed on. iw 14:52 Doug Vila MD is Attending Physician. chen 14:54 EKG done, by ED staff. bc6 14:55 Jasmine Schafre, RN is Primary Nurse. db 15:00 SARS RAPID Sent. ll1 15:20 US Extremity Venous W Compression Carmelo In Process Unspecified. EDMS 15:21 XRAY Chest (1 view) In Process Unspecified. EDMS 16:08 Patient has correct armband on for positive identification. Bed in low position. Call db light in reach. Side rails up X 1. 16:08 No provider procedures requiring assistance completed. Patient did not have IV access db during this emergency room visit. Administered Medications: 15:38 Not Given (Patient Refused): NS 0.9% 1000 ml IV at 125 ml/hr continuous db Medication: 16:08 VIS not applicable for this client. db Outcome: 16:04 Discharge ordered by . chen 16:08 Discharged to home ambulatory. db 16:08 Condition: stable 16:08 Discharge instructions given to patient. 16:23 Patient left the ED. db Signatures: Dispatcher [employer] EDTX Doug Vila MD MD cha Williams, Irene, RN RN Pricilla Fry rg4 Neida Jalloh RN RN ll1 Jasmine Schafer RN RN db Leslie Gil bc6 Corrections: (The following items were deleted from the chart) 15:28 15:27 Reassessment: PATIENT REFUSED LABS. STATES JUST WANTS RADIOLOGY REPORT OF db ULTRASOUND AND XRAY. db 16:23 16:08 BP 126 / 74; Pulse 16bpm; Resp 73bpm; Pulse Ox 100% RA; db db
[2022-09-15 19:05] VITALS: BP 126/74; O2SAT 100
[2022-09-15 19:06] VITALS: TEMP 98.7
--- NOTE | 2022-09-16 14:24 | EKG ---
Test Date: 2022-09-15 Test Time: 14:50:40 Locomotive Electrician: THA MEASUREMENT RESULTS: Intervals: Rate: 72 IA: 146 QRSD: 88 QT: 366 QTc: 400 [place]: P: 54 IA: 146 QRS: 75 T: 38 INTERPRETIVE STATEMENTS: Normal sinus rhythm Normal ECG No previous ECG available for comparison Electronically Signed On 09-16-22 14:22:10 ASSEMBLING FABRICATOR by Vinny England
== END 2022-09-15 16:23 | disposition home or self-care (01) ==
LOC: ER 14:16
DX: R06.00 Dyspnea, unspecified (principal); M79.662 Pain in left lower leg; Z72.0 Tobacco use
CPT/HCPCS: 71045; 93005; 93970; 99283

== ENCOUNTER 2022-10-20 15:15 | Emergency (ER) | payer SELFPAY ==
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
--- NOTE | 2022-10-20 16:11 | RAD REPORT ---
EXAM DESCRIPTION: RADChest Single View10/20/2022 3:49 pm CLINICAL HISTORY: vomiting COMPARISON: Chest Single View dated 09/15/2022 TECHNIQUE: PA and lateral views of the chest. FINDINGS: The lungs are clear. No pneumothorax or effusion. The cardiomediastinal contours are unrem arkable. IMPRESSION: No acute cardiopulmonary process.
[2022-10-20] MEDS ORDERED: FAMOTIDINE 20 MG/2 ML VIAL IV ONE (17:33)
[2022-10-20] MEDS ORDERED: ONDANSETRON 4 MG/2 ML VIAL ONE (17:33)
[2022-10-20 17:41] LABS: Absolute Lymphocytes (CBC) 1.6 K/uL (0.7-4.9); Hematocrit 45.1 % (39.6-49.0); Lymphocytes % 21.7 % (15.3-44.8); MPV 7.4 fL (7.6-11.3)
[2022-10-20 18:02] LABS: Albumin 4.1 g/dL (3.4-5.0); Bilirubin Direct 0.1 mg/dL (0-0.2); Bilirubin Total 0.4 mg/dL (0.2-1.0); Magnesium 2.3 mg/dL (1.6-2.4); Protein, Total 8.3 g/dL (6.4-8.2); Troponin High Sensitivity 16.8 pg/mL (<58.9)
[2022-10-20] MEDS ORDERED: KETOROLAC 30 MG/ML INJ ONE (18:54)
[2022-10-20] MEDS ORDERED: NA CHLORIDE 0.9% 1,000 ML ONE (18:54)
--- NOTE | 2022-10-20 19:57 | RAD REPORT ---
EXAM DESCRIPTION: US - UPPER EXTREMITY VENOUS UNILATE - 10/20/2022 7:32 pm CLINICAL HISTORY: Pain COMPARISON: None. TECHNIQUE: Real-time sonographic evaluation of the left upper extremity deep venous system was perfo rmed. FINDINGS: Normal compressibility, flow augmentation, phasic flow and spontaneous flow is identified in the left lower extremity deep venous system. No intraluminal filling defects seen. Low-level echoes with preserved flow on color duplex imaging within the basilic vein, appears to be r elated to Rouleaux flow. Cephalic vein is patent and compressible. IMPRESSION: No evidence of deep venous thrombosis in the left upper extremity.
--- NOTE | 2022-10-20 20:12 | EDPHYS ---
Physician Documentation [facility] Name: Bassem Almonte Age: 27 yrs Sex: Male : 1995 Arrival Date: 10/20/2022 Time: 15:16 Bed 16 Private MD: ED Physician Iain Albrecht HPI: 10/20 16:00 This 27 yrs old Male presents to ER via Ambulatory with complaints of cp Vomiting, Doesn't Feel Right, weight loss. 16:00 The patient or guardian complains of pain, that is acute, numbness of left hand. The cp complaints affect the left arm and left hand. Context: resulted from unknown cause, pain described as pins and needles to left hand, left mid back pain. Onset: The symptoms/episode began/occurred last week, denies injury. 16:00 Treatment prior to arrival includes: no previous treatment. The patient presents to the emergency department with nausea, that is mild, vomiting, that is intermittent. Onset: The symptoms/episode began/occurred this weekend, all day today. 16:00 Patient reports subjective weight loss since this weekend. Historical: - Allergies: 15:26 No Known Allergies; jh5 - PSHx: 15:26 right arm; jh5 - Immunization history:: Adult Immunizations up to date. - Social history:: Smoking status: Smoking status: Patient reports the use of cigarette tobacco products, denies chronic smoking, but will smoke occasionally. ROS: 16:05 Constitutional: Negative for body aches, chills, fever, poor PO intake. cp 16:05 Eyes: Negative for injury, pain, redness, and discharge. cp 16:05 ENT: Negative for drainage from ear(s), ear pain, sore throat, difficulty swallowing, difficulty handling secretions. 16:05 Cardiovascular: Negative for chest pain, edema, palpitations. 16:05 Respiratory: Negative for cough, shortness of breath, wheezing. 16:05 Abdomen/GI: Positive for nausea and vomiting, Negative for abdominal pain, diarrhea, constipation. 16:05 Back: Positive for pain at rest, pain with movement, of the left scapular area and left subscapular area. 16:05 Skin: Negative for rash. 16:05 Neuro: Positive for numbness, of the left hand, pain described as pins and needles, Negative for altered mental status, dizziness, headache. 16:05 All other systems are negative. Exam: 16:10 Constitutional: The patient appears in no acute distress, alert, awake, cp non-diaphoretic, non-toxic, well developed, well nourished. 16:10 Head/Face: Normocephalic, atraumatic. cp 16:10 Eyes: Periorbital structures: appear normal, Conjunctiva: normal, no exudate, no cp injection, Sclera: no appreciated abnormality, Lids and lashes: appear normal, bilaterally. 16:10 ENT: External ear(s): are unremarkable, Nose: is normal, Mouth: Lips: moist, Oral mucosa: pink and intact, moist, Posterior pharynx: is normal, airway is patent, no erythema, no exudate. 16:10 Neck: C-spine: vertebral tenderness, is not appreciated, crepitus, is not appreciated, ROM/movement: is normal, is supple, without pain, no range of motions limitations. 16:10 Chest/axilla: Inspection: normal, Palpation: is normal, no crepitus, no tenderness. cp 16:10 Cardiovascular: Rate: normal, Rhythm: regular, Edema: is not appreciated, JVD: is not appreciated. 16:10 Respiratory: the patient does not display signs of respiratory distress, Respirations: normal, no use of accessory muscles, no retractions, labored breathing, is not present, Breath sounds: are clear throughout, no decreased breath sounds, no stridor, no wheezing. 16:10 Abdomen/GI: Inspection: abdomen appears normal, Palpation: abdomen is soft and non-tender, in all quadrants. 16:10 Back: pain, that is moderate, of the left scapular area and left subscapular area, ROM is painful, with all movement. 16:10 Musculoskeletal/extremity: Extremities: grossly normal except: noted in the left arm: pain, There is no evidence of decreased ROM, deformity, noted in the left hand: pain, the left hand decreased sensation, ring packer strength equal bilaterally. 16:10 Neuro: Orientation: to person, place \T\ time. Mentation: is normal, Motor: moves all fours, strength is normal. 18:30 ECG was reviewed by the Attending Physician. cp Vital Signs: 15:23 BP 127 / 85; Pulse 82; Resp 18; Temp 98.6; Pulse Ox 100% ; Weight 81.65 kg; Height 5 5 ft. 9 in. (175.26 cm); Pain 5/10; 17:30 BP 127 / 79; Pulse 80; Resp 14; Pulse Ox 98% on R/A; vg1 18:30 BP 108 / 73; Pulse 77; Resp 16; Pulse Ox 98% on R/A; vg1 19:15 BP 110 / 54; Pulse 65; Resp 16; Pulse Ox 100% on R/A; jb4 15:23 Body Mass Index 26.58 (81.65 kg, 175.26 cm) 5 MDM: 15:49 Patient medically screened. cp 20:10 Data reviewed: vital signs, nurses notes, lab test result(s), EKG, radiologic studies, cp plain films, ultrasound. 20:10 Consideration of Admission/Observation Escalation of care including cp admission/observation considered. I considered the following discharge prescriptions or medication management in the emergency department Medications were administered in the Emergency Department. See MAR. Test considered but Not performed: CT: head, chest. Counseling: I had a detailed discussion with the patient and/or guardian regarding: the historical points, exam findings, and any diagnostic results supporting the discharge/admit diagnosis, lab results, radiology results, the need for outpatient follow up, a family practitioner, to return to the emergency department if symptoms worsen or persist or if there are any questions or concerns that arise at home. Response to treatment: the patient's symptoms have mildly improved after treatment, and as a result, I will discharge patient. 10/20 15:34 Order name: Basic Metabolic Panel cp 10/20 15:34 Order name: CBC with Diff cp 10/20 15:34 Order name: LFT's cp 10/20 15:34 Order name: Magnesium cp 10/20 15:34 Order name: Troponin HS cp 10/20 15:34 Order name: Lipase cp 10/20 15:34 Order name: XRAY Chest (1 view) cp 10/20 16:12 Order name: RAD; Complete Time: 17:49 EDMS 10/20 17:50 Interpretation: Report reviewed. cp 10/20 17:46 Order name: CBC with Automated Diff; Complete Time: 17:49 EDMS 10/20 17:50 Interpretation: Normal except: MPV 7.4. cp 10/20 18:02 Order name: Basic Metabolic Panel; Complete Time: 18:23 EDMS 10/20 18:02 Order name: Liver (Hepatic) Function; Complete Time: 18:23 EDMS 02 18:23 Interpretation: Normal except: TP 8.3; GLOB 4.2; A/G 1.0. cp 02/ 18:02 Order name: Troponin High Sensitivity; Complete Time: 18:23 EDMS 02 18:02 Order name: Magnesium; Complete Time: 18:23 EDMS 10/20 18:02 Order name: Lipase; Complete Time: 18:23 EDMS 10/20 15:34 Order name: EKG; Complete Time: 15:35 cp 10/20 15:34 Order name: Cardiac monitoring; Complete Time: 18:26 cp 10/20 15:34 Order name: EKG - Nurse/Tech; Complete Time: 18:26 cp 10/20 15:34 Order name: IV Saline Lock; Complete Time: 17:35 cp 10/20 15:34 Order name: Labs collected and sent; Complete Time: 17:44 cp 10/20 15:34 Order name: O2 Per Protocol; Complete Time: 17:21 cp 10/20 15:34 Order name: O2 Sat Monitoring; Complete Time: 17:21 cp 10/20 18:43 Order name: US Extremity Venous Unilateral Ltd cp 10/20 19:33 Order name: PO challenge; Complete Time: 19:53 cp 10/20 19:58 Order name: US EDMS EC:30 Rate is 78 beats/min. Rhythm is regular. OH interval is normal. QRS interval is normal. cp QT interval is normal. T waves are Inverted in lead aVR. Interpreted by me. Reviewed by me. Administered Medications: 17:37 Drug: Zofran (Ondansetron) 4 mg Route: IVP; Site: left antecubital; vg1 17:39 Drug: Pepcid (famotidine) 20 mg Route: IVP; Site: left antecubital; vg1 19:00 Drug: Ketorolac 30 mg Route: IVP; Site: left antecubital; vg1 19:00 Drug: NS 0.9% 1000 ml Route: IV; Rate: 1 bolus; Site: left antecubital; vg1 19:53 Follow up: Response: No adverse reaction; IV Status: Completed infusion; IV Intake: jb4 1000ml Disposition: 10/21 07:14 Co-signature as Attending Physician, Iain Albrecht MD I reviewed the patient's care rn provided by the Advanced Practice Provider and agree with the diagnosis and treatment plan. Disposition Summary: 10/20/22 20:11 Discharge Ordered Location: Home cp Problem: new cp Symptoms: have improved cp Condition: Stable cp Diagnosis - Dorsalgia, unspecified cp - Pain in left arm cp - Nausea with vomiting, unspecified cp - Paresthesia of skin - left hand cp Followup: cp - With: Private Physician - When: 2 - 3 days - Reason: Recheck today's complaints Discharge Instructions: - Discharge Summary Sheet cp - Acute Back Pain, Adult cp - Musculoskeletal Pain cp - Nausea and Vomiting, Adult cp - Paresthesia cp Forms: - Medication Reconciliation Form cp - Thank You Letter cp - Antibiotic Education cp - Prescription Opioid Use cp - Work release form jb4 Prescriptions: - Zofran 4 mg Oral Tablet - take 1 tablet by ORAL route every 12 hours As needed; 20 tablet; Refills: 0, cp Product Selection Permitted - Cyclobenzaprine 10 mg Oral Tablet - take 1 tablet by ORAL route every 8 hours As needed; 20 tablet; Refills: 0, cp Product Selection Permitted - Diclofenac Sodium 75 mg Oral Tablet Sustained Release - take 1 tablet by ORAL route 2 times per day; 30 tablet; Refills: 0, Product cp Selection Permitted Signatures: Dispatcher [employer] EDIain Stout MD MD rn Page, Corey, PA PA cp Garcia, Victoria RN RN vg1 Ericka Walker RN RN jh5 Matteo Gonsalez RN jb4 Corrections: (The following items were deleted from the chart) 19:57 10/20 16:00 Onset: The symptoms/episode began/occurred yesterday, cp cp
--- NOTE | 2022-10-20 20:12 | ER ---
Nurse's Notes [facility] Name: Bassem Almonte Age: 27 yrs Sex: Male : 1995 Arrival Date: 10/20/2022 Time: 15:16 Bed 16 Private MD: Diagnosis: Dorsalgia, unspecified;Pain in left arm;Nausea with vomiting, unspecified;Paresthesia of skin-left hand Presentation: 10/20 15:23 Chief complaint: Patient states: vomiting today, all day. left hand went numb a week jh5 ago and it hurts when i touch it. I didn't hurt it though, it just happened. My left hand is numb, that's all I can describe it. When it touch it i feel sharp pin needles. Coronavirus screen: Vaccine status: Patient reports being unvaccinated. Client denies travel out of the [place] in the last 14 days. Ebola Screen: Patient negative for fever greater than or equal to 101.5 degrees Fahrenheit, and additional compatible Ebola Virus Disease symptoms Patient denies exposure to infectious person. Patient denies travel to an Ebola-affected area in the 21 days before illness onset. Initial Sepsis Screen: Does the patient meet any 2 criteria? No. Patient's initial sepsis screen is negative. Does the patient have a suspected source of infection? No. Patient's initial sepsis screen is negative. Risk Assessment: Do you want to hurt yourself or someone else? Patient reports no desire to harm self or others. Onset of symptoms was October 17, 2022. 15:23 Method Of Arrival: Ambulatory [facility] 15:23 Acuity: SHAQUILLE 3 jh5 Triage Assessment: 15:26 General: Appears in no apparent distress. slender, well groomed, well developed, [facility] Behavior is calm, cooperative, appropriate for age. Pain: Complains of pain in left arm. GI: Reports vomiting. Historical: - Allergies: 15:26 No Known Allergies; 5 - PSHx: 15:26 right arm; 5 - Immunization history:: Adult Immunizations up to date. - Social history:: Smoking status: Smoking status: Patient reports the use of cigarette tobacco products, denies chronic smoking, but will smoke occasionally. Screenin:28 [facility] ED Fall Risk Assessment (Adult) History of falling in the last 3 months, jh5 including since admission No falls in past 3 months (0 pts). Abuse screen: Denies threats or abuse. Denies injuries from another. Nutritional screening: No deficits noted. Tuberculosis screening: No symptoms or risk factors identified. Assessment: 17:22 General: Appears in no apparent distress. comfortable, Behavior is calm, cooperative. vg1 Pain: Denies pain. Neuro: Level of Consciousness is awake, alert, obeys commands, Oriented to person, place, time, situation. Cardiovascular: Patient's skin is warm and dry. Respiratory: Airway is patent Respiratory effort is even, unlabored. GI: Abdomen is flat, Reports nausea, vomiting, Patient currently denies abdominal pain. : No signs and/or symptoms were reported regarding the genitourinary system. EENT: No signs and/or symptoms were reported regarding the EENT system. Derm: Skin is pink, warm \T\ dry. Musculoskeletal: Circulation, motion, and sensation intact. 18:22 Reassessment: Patient appears in no apparent distress at this time. No changes from vg1 previously documented assessment. Patient and/or family updated on plan of care and expected duration. Pain level reassessed. Patient is alert, oriented x 3, equal unlabored respirations, skin warm/dry/pink. 19:13 Reassessment: Patient appears in no apparent distress at this time. Patient and/or jb4 family updated on plan of care and expected duration. Pain level reassessed. Patient is alert, oriented x 3, equal unlabored respirations, skin warm/dry/pink. Ultrasound is at the bedside. 20:22 Reassessment: Patient appears in no apparent distress at this time. Patient and/or jb4 family updated on plan of care and expected duration. Pain level reassessed. Patient is alert, oriented x 3, equal unlabored respirations, skin warm/dry/pink. Vital Signs: 15:23 BP 127 / 85; Pulse 82; Resp 18; Temp 98.6; Pulse Ox 100% ; Weight 81.65 kg; Height 5 5 ft. 9 in. (175.26 cm); Pain 5/10; 17:30 BP 127 / 79; Pulse 80; Resp 14; Pulse Ox 98% on R/A; vg1 18:30 BP 108 / 73; Pulse 77; Resp 16; Pulse Ox 98% on R/A; vg1 19:15 BP 110 / 54; Pulse 65; Resp 16; Pulse Ox 100% on R/A; jb4 15:23 Body Mass Index 26.58 (81.65 kg, 175.26 cm) 5 ED Course: 15:16 Patient arrived in ED. am2 15:20 Doug Goodman PA is PHCP. cp 15:20 Iain Albrecht MD is Attending Physician. cp 15:26 Triage completed. jh5 15:26 Arm band placed on right wrist. 5 15:28 Patient has correct armband on for positive identification. jh5 15:28 No provider procedures requiring assistance completed. jh5 17:21 Myesha Márquez, RN is Primary Nurse. vg1 17:35 Inserted saline lock: 20 gauge in left antecubital area, using aseptic technique. Blood sg5 collected. 20:22 IV discontinued, intact, bleeding controlled, No redness/swelling at site. Pressure jb4 dressing applied. Administered Medications: 17:37 Drug: Zofran (Ondansetron) 4 mg Route: IVP; Site: left antecubital; vg1 17:39 Drug: Pepcid (famotidine) 20 mg Route: IVP; Site: left antecubital; vg1 19:00 Drug: Ketorolac 30 mg Route: IVP; Site: left antecubital; vg1 19:00 Drug: NS 0.9% 1000 ml Route: IV; Rate: 1 bolus; Site: left antecubital; vg1 19:53 Follow up: Response: No adverse reaction; IV Status: Completed infusion; IV Intake: jb4 1000ml Medication: 17:22 VIS not applicable for this client. vg1 Intake: 19:53 IV: 1000ml; Total: 1000ml. jb4 Outcome: 20:11 Discharge ordered by . cp 20:22 Discharged to home ambulatory, with friend. jb4 20:22 Condition: stable 20:22 Discharge instructions given to patient, Instructed on discharge instructions, follow up and referral plans. no drinking with medication, no driving heavy equipment, medication usage, Demonstrated understanding of instructions, follow-up care, medications, Prescriptions given X 3. 20:23 Patient left the ED. jb4 Signatures: Doug Goodman PA PA cp Bryson, James RN RN jb4 Carol Ann Meyer am2 Myesha Márquez, RN RN vg1 Ericka Walker RN RN jh5 Lucie Vasquez, RN RN sg5
[2022-10-20 21:04] VITALS: TEMP 98.6
[2022-10-20 21:16] VITALS: BP 110/54; O2SAT 100
--- NOTE | 2022-10-21 17:11 | EKG ---
Test Date: 2022-10-20 Test Time: 18:24:07 Sorting Grapple Operator: NAOMI MEASUREMENT RESULTS: Intervals: Rate: 78 CO: 104 QRSD: 90 QT: 380 QTc: 433 [place]: P: 56 CO: 104 QRS: 70 T: 49 INTERPRETIVE STATEMENTS: Sinus rhythm with short CO Junctional ST depression, probably normal Borderline ECG Compared to ECG 10/20/2022 18:17:53 Short [place] interval now present ST (T wave) deviation now present Myocardial infarct finding no longer present Electronically Signed On 10-21-22 17:08:59 HOTEL RESERVATION AGENT by Vinny England
--- NOTE | 2022-10-21 17:12 | EKG ---
Test Date: 2022-10-20 Test Time: 18:17:53 Disk Sander: NAOMI MEASUREMENT RESULTS: Intervals: Rate: 81 [place]: 134 QRSD: 86 QT: 356 QTc: 413 [place]: P: [place]: 134 QRS: 127 T: 166 INTERPRETIVE STATEMENTS: Normal sinus rhythm Lateral infarct, age undetermined Cannot rule out Inferior infarct, age undetermined Abnormal ECG Compared to ECG 10/20/2022 18:16:57 Short [place] interval no longer present Right-axis deviation no longer present Myocardial infarct finding still present Electronically Signed On 10-21-22 17:09:02 ELECTRONIC HEAT SEAL OPERATOR by Vinny England
== END 2022-10-20 20:23 | disposition home or self-care (01) ==
LOC: ER 15:15
DX: M54.9 Dorsalgia, unspecified (principal); M79.602 Pain in left arm; R20.2 Paresthesia of skin; R11.2 Nausea with vomiting, unspecified
CPT/HCPCS: 36415; 71045; 80048; 80076; 83690; 83735; 84484; 85025; 93005; 93971; 96361; 96374; 96375; 99284; J2405; J7030